=== PATIENT | female | born 1950 | race Caucasian/White ===

== ENCOUNTER 2023-11-20 09:28 | Observation (INO) | payer MEDICARE, OTHER, SELFPAY ==
[2023-11-20] VITALS (18 sets, daily range): BP systolic 109–158; BP diastolic 56–79; PULSE 64–90; RESP 12–18; TEMP 36.4–36.9; O2SAT 90–97; BMI 32.1
--- NOTE | 2023-11-20 09:46 | ED_ITS ---
HPI - General Adult General Date Seen: 11/20/23 Chief complaint: Nausea/Vomiting Stated complaint: flu symptoms Time Seen by Provider: 11/20/23 09:45 History of Present Illness HPI narrative: This 73-year-old female with a past medical history of hypertension, obesity, colon polyps, prediabetes and basal cell carcinoma of her nose (per records through [facility] she went through several rounds of radiation for her BC see on the left side of her nose over the winter (from July to September). This is left her with chronic watery, puffy eyes, and sinus congestion. She has been receiving ?infusions? at [facility] since then). Patient says has had chronic drainage from her left eye for the past few months since finishing radiation and also some chronic sinus congestion. she has been feeling sicker than normal for the past week, or maybe 2 weeks or 3 weeks. She is a bit vague about when symptoms started. She has had a cough. It is nonproductive. It started maybe a week or 2 ago. It is still there but not really worse than normal. No chest pain. No shortness of breath. She has also developed swelling of her left upper and lower eyelids, left cheek and left upper lip. This is been there for perhaps a week or so it has been getting a little bit worse. It is not painful. It does not hurt her eye. No pain in her eye socket. No headache. Vision is normal. She says she was told there was an 80% chance she would lose the vision in her left eye with radiation but she did not. Her vision is at baseline. No known eye trauma. She is having nasal drainage which is mostly clear. She is having some purulent drainage from her left eye. Right eye is normal. She was put on eyedrops by a doctor in [place] on Thursday. She does not recall what else was done in [place]. She recalls that she went to the ER at the [facility] a couple of days ago. She had to stay there for about 10 hours because they were busy. She says she received some IV fluids. She was put on antibiotics. She took 1 or 2 of them but they made her feel more sick (more nauseous) so she stopped taking them. She can not really remember when she stopped taking them. She for sure she has not had any today or yesterday. Along with these above symptoms she has also had nausea that has been getting steadily worse throughout the week. She says she is ?not been able to eat? for several days. Finally this morning she actually threw up when she drinks some water. She is having some upper abdominal pain. No fever. Bowel movements normal. Per records through [facility] she was seen in the [facility] on 11/15. Notes indicate that she had congestion, left eye discharge, malaise. Labs showed a sodium 132, glucose 106, platelet count 135,. Remainder of her labs are unknown because I am not able to see all of her lab tests through the record. Prescribed Augmentin for possible sinus infection, ofloxacin eyedrops. Notes indicate that she was going tof [facility] up with her doctor on (yesterday). She apparently talked to her family and they told her to come to the hospital in [place], because she was getting sicker. Related Data Home Medications Medication Instructions Recorded Confirmed albuterol sulfate 90 mcg/actuation 1 - 2 puff inhalation Q4H PRN 11/20/23 11/20/23 aerosol inhaler wheezing amlodipine 5 mg tablet 5 mg PO DAILY 11/20/23 11/20/23 amoxicillin 875 mg-potassium 1 tab PO BID 11/20/23 11/20/23 clavulanate 125 mg tablet cholecalciferol (vitamin D3) 50 50 mcg PO DAILY 11/20/23 11/20/23 mcg (2,000 unit) capsule doxazosin 4 mg tablet 4 mg PO HS 11/20/23 11/20/23 fluticasone propionate 110 2 inh inhalation BID 11/20/23 11/20/23 mcg/actuation HFA aerosol inhaler gabapentin 300 mg capsule 300 mg PO BID 11/20/23 11/20/23 lorazepam 0.5 mg tablet 0.5 mg PO DAILY PRN anxiety 11/20/23 11/20/23 losartan 100 mg tablet 100 mg PO DAILY 11/20/23 11/20/23 montelukast 10 mg tablet 10 mg PO DIRECTED PRN 11/20/23 11/20/23 ofloxacin 0.3 % eye drops (Ocuflox) 1 drp ophthalmic (eye) Q2H 11/20/23 11/20/23 Allergies Allergy/AdvReac Type Severity Reaction Status Date / Time No Known Drug Allergies Allergy Verified 11/20/23 12:54 PFSH PFS Medical History (Updated 11/20/23 @ 16:50 by Teja Bran MD) Hypertension ?I10 - Essential (primary) hypertension (ICD-10) Hyperlipidemia ?E78.5 - Hyperlipidemia, unspecified (ICD-10) Obesity (BMI 30.0-34.9) ?E66.9 - Obesity, unspecified (ICD-10) Basal cell carcinoma (BCC) of skin of face ?C44.310 - Basal cell carcinoma of skin of unspecified parts of face (ICD-10) Hyponatremia ?E87.1 - Hypo-osmolality and hyponatremia (ICD-10) Surgical History (Updated 11/20/23 @ 16:39 by Teja Bran MD) S/P Mohs surgery for basal cell carcinoma ?Z98.890 - Other specified postprocedural states (ICD-10) ?Z85.828 - Personal history of other malignant neoplasm of skin (ICD-10) H/O sinus surgery ?Z98.890 - Other specified postprocedural states (ICD-10) Family History (Updated 11/20/23 @ 16:35 by Teja Bran MD) Brother High blood pressure Mother Breast cancer Sister Breast cancer Melanoma Social History (Updated 11/20/23 @ 16:41 by Teja Bran MD) Narrative: She lives with her near [place]. , son, [id number] are healthcare power of senior attorney. She does not smoke. She does not drink alcohol. Code status is DNR. What is your current living situation?: I presently have a place to live Problems where you live: no known problems Problems where you live details: none known In the past 12 months, utilities in danger of being shut off: no In past 12 months, lack of transportation kept you from medical appts, meetings, work, or getting things needed for daily living: no In the past 12 mos, have been you worried that your food would run out before you had money to buy more?: never true In the past 12 mos, the food you bought just didn't last and you didn't have money to buy more?: never true Smoking Status: Never smoker How often do you have a drink containing alcohol: never AUDIT-C Alcohol total score: 0 Non-prescribed substance use: denies use Caffeine: No How often does anyone, including family, friends and others, physically hurt you : never How often does anyone, including family, friends and others, insult or talk down to you: never How often does anyone, including family, friends and others, threaten you with harm: never How often does anyone, including family, friends and others, scream or curse at you: never Exam Narrative: Exam Narrative: Constitutional: Appears well-developed and well-nourished. Alert. Conversant but tangential a story. Non toxic. HENT: Head: Atraumatic. No depressed skull fracture, Raccoon Eyes, Delacruz's sign, or hemotympanum. Face normal. TMs normal She does have subtle pink erythema affecting her left upper and lower eyelids, left cheek. She feels as though her left upper lip is swollen but I do not appreciate any swelling there. No palpable abscess in the cheek. Nose: Nonpurulent rhinorrhea mostly from the left naris. Mouth/Throat: Oral mucosa is clear and moist. no trismus. Pharynx normal. Tonsils symmetric. No tonsillar enlargement, erythema, or exudate. Eyes: Conjunctivae slightly injected in the left eye. There is some watery discharge from the left eye but no purulent drainage. No crusting at the eyelid margin. No exophthalmos or enophthalmos.. EOM normal and symmetric with the right eye. No nystagmus.. Pupils equal, round, and reactive to light. No scleral icterus. Neck: Normal range of motion. Neck supple. No tracheal deviation present. Fluorescein- no fluorescein uptake. No evidence for any corneal abrasion, herpetic dendrites. No sign of corneal ulcer. Cardiovascular: Normal rate, regular rhythm. No gallop. No friction rub. No murmur heard. Symmetric radial artery pulses Pulmonary/Chest: Effort normal. No stridor. No respiratory distress. No wheezes. No rales. No rhonchi . No tenderness. Abdominal: Soft. No distension. No mass. No tenderness. No rebound. No guarding. Musculoskeletal: RUE: Normal range of motion. No tenderness. No deformity LUE: Normal range of motion. No tenderness. No deformity RLE: Normal range of motion. No edema. No tenderness. No deformity LLE: Normal range of motion. No edema. No tenderness. No deformity Lymph: No cervical adenopathy. Neurological: Mental status normal. Attention normal. Alert and oriented x3. GCS 15. Memory normal. Speech fluent. Cognition normal. Cranial Nerves intact II-XII except I did not formally test gag or visual acuit y. EOMI. Palate elevates symmetrically and tongue protrudes in the midline. Strength: 5/5 trapezius on the right and left 5/5 deltoid on the right and left 5/5 biceps on the right and left 5/5 triceps on the right and left 5/5 assistant food service manager on the right and left 5/5 thumb opposition on the right and le ft 5/5 finger abduction on the right and le ft 5/5 hip flexors (L3) on the right and le ft 5/5 quadriceps (L4) on the right and lef t 5/5 tibialis anterior on the right and l eft 5/5 EHL (L5) on the right and left 5/5 gastrocnemius (S1) on the right and left 5/5 hamstring on the right and left Sensation intact to light touch in both upper extremities (C4-T1) Sensation intact to light touch in Both lower extremities (L4-S1). Finger to nose and coordination normal. Gait normal. Skin: Skin is warm and dry. No rash noted. No pallor. Normal capillary refill. Psychiatric: Normal mood. Normal affect. Const: Vital Signs, click to edit/add: Vital Signs - 24 hr 11/20/23 09:46 11/20/23 11:02 11/20/23 11:32 Temperature 98.4 F Pulse Rate 74 70 Pulse Rate [Pulse Oximeter] 73 Respiratory Rate 18 14 12 Blood Pressure 132/72 131/62 Blood Pressure [Ri t Upper Arm] 128/79 Pulse Oximetry 96 96 94 Oxygen Delivery Me thod Room Air 11/20/23 12:02 11/20/23 12:32 11/20/23 13:02 Temperature Pulse Rate 71 72 68 Pulse Rate [Pulse Oximeter] Respiratory Rate 14 16 12 Blood Pressure 132/64 132/64 120/66 Blood Pressure [Ri t Upper Arm] Pulse Oximetry 92 90 93 Oxygen Delivery Me thod 11/20/23 13:32 11/20/23 14:02 11/20/23 14:32 Temperature Pulse Rate 69 66 64 Pulse Rate [Pulse Oximeter] Respiratory Rate 14 16 14 Blood Pressure 129/68 134/63 131/59 L Blood Pressure [Ri ght Upper Arm] Pulse Oximetry 93 94 96 Oxygen Delivery Me thod 11/20/23 15:02 11/20/23 15:32 11/20/23 16:02 Temperature Pulse Rate 66 73 71 Pulse Rate [Pulse Oximeter] Respiratory Rate 14 16 Blood Pressure 140/75 H 158/66 H 142/61 H Blood Pressure [Ri ght Upper Arm] Pulse Oximetry 95 96 93 Oxygen Delivery Me thod 11/20/23 16:15 11/20/23 16:30 Temperature Pulse Rate 65 67 Pulse Rate [Pulse Oximeter] Respiratory Rate Blood Pressure Blood Pressure [Ri ght Upper Arm] Pulse Oximetry 92 94 Oxygen Delivery Me thod Course Course ED Course: Discussed with this patient's oncologist from [facility], Dr. Sanches He agrees that she should continue on antibiotics for possible preseptal/facial cellulitis. He also wonders if her symptoms could potentially be side effects of her immunomodulatory medication. He would recommend the, in addition to antibiotics, that we start the patient on low-dose prednisone-40 mg per day. Oncology agrees that the patient can be admitted here in [place]. She does not need transfer to [facility] for immediate oncology consultation. However if her condition worsens or fails to improve he would be available for consult over the phone and patient we will transfer later. Vital Signs Vital signs: Initial Vital Signs Temperature 98.4 F 11/20/23 09:46 Temperature Source Temporal Artery Scan 11/20/23 09:46 Pulse Rate 73 11/20/23 09:46 Respiratory Rate 18 11/20/23 09:46 Blood Pressure 128/79 11/20/23 09:46 Blood Pressure Mean 95 11/20/23 09:46 Pulse Oximetry 96 11/20/23 09:46 Oxygen Delivery Method Room Air 11/20/23 09:46 Vital Signs Temperature 98.4 F 11/20/23 09:46 Pulse Rate 73 11/20/23 09:46 Respiratory Rate 18 11/20/23 09:46 Blood Pressure 128/79 11/20/23 09:46 Pulse Oximetry 96 11/20/23 09:46 Oxygen Delivery Method Room Air 11/20/23 09:46 Temperature 97.6 F 11/20/23 20:27 Pulse Rate 81 11/20/23 20:27 Respiratory Rate 16 11/20/23 20:27 Blood Pressure 141/75 H 11/20/23 20:27 Pulse Oximetry 96 11/20/23 20:27 Oxygen Delivery Method Room Air 11/20/23 20:27 Medications Administered Medications: Generic Name Dose Route Start Last Admin Trade Name Vandaan PRN Reason Stop Dose Admin Ondansetron HCl 4 mg 11/20/23 15:53 11/20/23 17:52 Ondansetron 2 Mg/Ml Inj IVP 4 mg Q4H PRN Administration Nausea Sodium Chloride 1 gm 11/20/23 18:00 11/20/23 17:52 Sodium Chloride 1 Gm Tablet PO 1 gm TIDWM ASHLEIGH Administration Discontinued Medications Generic Name Dose Route Start Last Admin Trade Name Freleyla PRN Reason Stop Dose Admin Fluorescein Sodium 1 strip 11/20/23 10:21 11/20/23 14:48 Fluorescein Sodium Topical Strip EYE-LEFT 11/20/23 10:22 1 strip ONCE ONE Administration Sodium Chloride 1,000 mls @ 1,000 mls/hr 11/20/23 10:30 11/20/23 11:39 0.9 % Sodium Chloride 1000 Ml IV 11/20/23 11:29 Infused .Q1H ASHLEIGH Infusion Ceftriaxone Sodium 2 gm/ 100 mls @ 200 mls/hr 11/20/23 13:12 11/20/23 14:10 Sodium Chloride IVPB 11/20/23 13:13 Infused ONCE ONE Infusion Ibuprofen 600 mg 11/20/23 13:45 11/20/23 15:37 Ibuprofen 200 Mg Tablet PO 11/20/23 13:46 Not Given ONCE ONE Ondansetron HCl 4 mg 11/20/23 10:17 11/20/23 10:39 Ondansetron 2 Mg/Ml Inj IVP 11/20/23 10:18 4 mg ONCE ONE Administration Ondansetron HCl 4 mg 11/20/23 13:13 11/20/23 13:37 Ondansetron 2 Mg/Ml Inj IVP 11/20/23 13:14 4 mg ONCE ONE Administration Pantoprazole Sodium 80 mg 11/20/23 15:06 11/20/23 15:31 Pantoprazole Sodium 40 Mg Inj IVP 11/20/23 15:07 80 mg ONCE ONE Administration Potassium Bicarbonate 25 meq 11/20/23 16:20 11/20/23 18:22 Potassium Bicarb 25 Meq Effervescent Tab PO 11/20/23 16:21 Not Given ONCE ONE Potassium Chloride 20 meq 11/20/23 17:58 11/20/23 19:02 Potassium Chloride 10 Meq Capsule Er PO 11/20/23 17:59 20 meq ONCE ONE Administration Prednisone 40 mg 11/20/23 15:06 11/20/23 15:30 Prednisone 20 Mg Tablet PO 11/20/23 15:07 40 mg ONCE ONE Administration Prednisone 20 mg 11/20/23 16:03 11/20/23 17:52 Prednisone 10 Mg Tablet PO 11/20/23 16:04 20 mg ONCE ONE Administration Medical Decision Making MDM Narrative Medical decision making narrative: Very pleasant 73-year-old female with a history of complicated basal cell carcinoma affecting her left side of her bridge of her nose, requiring treatment with chemotherapy and local radiation. She gets her oncology care to the [facility] in finished a radiate in a couple of months ago. Radiation is been complicated by chronic watery over her eye and nasal congestion. She has now developed symptoms over the past couple weeks of swelling and redness of her left upper and lower eyelid, left cheek, as well as other symptoms as above. She has already been started on antibiotics for possible preseptal cellulitis but has worsening nausea and vomiting and cannot tolerate the antibiotics, prompting her presentation to the ER today. She does have subtle pink erythema of the left upper and lower eyelid, left cheek. This could represent a preseptal cellulitis but really is not quite as firm and indurated as you might expect to be ?typical? for infection. White co unt is normal. She is not febrile. We will start the patient on IV antibiotics since she is failing a course of outpatient antibiotics. No sepsis physiology. Vital signs stable. Broader differential is considered. Head CT is obtained and shows evidence for ethmoid sinusitis and some abnormalities in the right frontal sinus but not really on the left. No evidence for any bony erosion around the sinuses. CT orbits shows no evidence for any fluid collection in the orbit. No evidence for any cavernous sinus thrombosis. Eye exam does not show any evidence for corneal abrasion, corneal ulcer, foreign body under the lids. No mid dilated or fixed pupil or other visual symptoms or headache to suggest acute angle closure glaucoma. Patient does have nausea but no abdominal tenderness on my exam to suggest acute surgical GI pathology such as bowel obstruction, colitis, diverticulitis, cholecystitis. Nausea is improved here in the ER, but not completely resolved. Discussed with her oncologist. He wonders if she may have gastritis induced by her immune checkpoint inhibitor and recommends that we treat for gastritis with PPI as well as putting her on steroids. She will be admitted to the hospitalist service for ongoing IV antibiotic therapy, IV hydration, treatment of her nausea. Lab Data Labs: Lab Results 11/20/23 11/20/23 11/20/23 Range/Units 10:35 14:59 15:45 WBC 5.16 (4.50-11.00) K/uL RBC 4.45 (4.00-5.20) m/uL Hgb 12.4 (12.0-16.0) gm/dL Hct 35.7 (33.0-51.0) % MCV 80 (80-100) fL MCH 28 (26-34) pg MCHC 35 (32-36) gm/dL RDW Coeff of Christiano 13.2 (11.5-15.5) % Plt Count 130 L (140-440) K/uL Neut % (Auto) 62.0 (42.0-72.0) % Lymph % (Auto) 18.6 L (20-44) % Holmes % (Auto) 9.1 (0.0-11.0) % Eos % (Auto) 9.1 H (0.0-7.0) % Baso % (Auto) 1.0 (0.0-3.0) % Neut # (Auto) 3.20 (1.7-7.0) K/uL Lymph # (Auto) 1.00 (0.90-2.90) K/uL Holmes # (Auto) 0.50 (0.00-0.90) K/UL Eos # (Auto) 0.50 (0.00-0.50) K/uL Baso # (Auto) 0.05 (0.00-0.30) K/uL Abs Immat Gran (auto) 0.01 (0.00-0.30) K/uL Imm/Tot Granulo (auto) 0.2 % Sodium 125 L (135-149) mmol/L Potassium 3.4 L (3.6-5.1) mmol/L Chloride 99 (96-114) mmol/L Carbon Dioxide 22 (20-32) mmol/L Anion Gap 4 L (7-15) mEq/L BUN 7 (7-30) mg/dL Creatinine 0.5 (0.5-1.5) mg/dL Estimated Creat Clear 46.20 Estimated GFR 98 ml/min Glucose 82 (60-115) mg/dL Lactate 0.7 (0.5-1.9) mmol/L Calcium 8.6 (8.4-10.6) mg/dL Magnesium 1.5 (1.5-2.6) mg/dL Total Bilirubin 0.8 (0.1-1.5) mg/dL Direct Bilirubin 0.1 (0.0-0.5) mg/dL AST 34 (12-35) U/L ALT 20 (4-35) U/L Alkaline Phosphatase 66 (40-150) U/L C-Reactive Protein 1.1 H (0.5-1.0) mg/dL Total Protein 6.2 (6.0-8.3) g/dL Albumin 3.5 (3.3-5.0) g/dL Lipase 58 (23-300) U/L TSH 3.570 (0.270-4.20) uIU/mL Lab Acknowledgement Test Added Test Added Imaging Data CT scan - head: Attestation: I have reviewed the pertinent imaging results. My impression: IMPRESSION: 1. No CT evidence of acute intracranial abnormality. 2. Mild generalized cerebral volume loss. 3. Please see the separately dictated CT orbits for related findings.
--- NOTE | 2023-11-20 10:17 | CT_ITS ---
Patient: PRISCILLA THOMPSON Facility:?[facility] Patient ID:?[id number] Site Patient ID:?[id number]. Site :?[id number] Study:?CT-Orbits W/ and W/O Cont 98CC ISOVUE 370-11/20/2023 12:00:36 PM Ordering Physician:?DR. TRENT Final Report: Indication: Left eye swelling, nausea, history of left eye radiation for basal cell carcinoma of the left cheek under the eye. Technique: Pre and postcontrast CT of the orbits, with bone and soft tissue algorithm, coronal and sagittal reformats. A total of 98 mL Isovue 370 contrast was administered intravenously for this exam. Comparison: Same-day CT head. CT sinus report 11/20/2021. MRI neck report 12/13/2020. Findings: There is nonspecific smooth soft tissue fullness at the left infraorbital face extending to the nasolabial fold, which appears superficial to the superficial musculoaponeurotic system. No discrete, measurable enhancing soft tissue lesion or focal fluid collection identified. The left infraorbital canal and foramen appears symmetric to the right, without aggressive bony erosion or pathologic widening. The globes appear symmetric and normal in position. The intra-ocular lens is are present in the expected anterior location. No inflammatory stranding, focal mass or suspicious enhancement identified within the intraconal or extraconal space of either orbit. The optic nerve sheath complexes and extra- ocular muscles appear symmetric and normal in course and caliber. The facial bones appear grossly intact. There is mild right and moderate left circumferential mucosal thickening throughout the maxillary antrum, extending into the anterior ethmoid air cells bilaterally, with opacified left frontal recess and layering secretions in the left frontal sinus. 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 Stable lobulated dense debris within the inferior left maxillary antrum, potentially chronic inspissated secretions versus fungal elements. Minor mucosal thickening and bubbly secretions within the right sphenoid sinus. Narrowed bilateral sphenoethmoidal recesses. Nasal septum is relatively midline. Partially opacified bilateral middle eran lamella. Slightly paradoxical left middle turbinate. Intracranial structures are detailed in a separate report. Impression: 1. Nonspecific smooth superficial soft tissue fullness at the left infraorbital face and nasolabial fold, without a discrete enhancing lesion or focal fluid collection. This could represent nonspecific preseptal periorbital cellulitis and/or posttreatment change. However, given patient history, clinical correlation and attention on follow-up advised. 2. No evidence to suggest postseptal/intraorbital pathology. No suspicious findings along the left infraorbital foramen/canal. 3. Moderate paranasal sinus mucosal inflammatory changes as detailed. Please note that all CT scans at this facility use dose modulation, iterative reconstruction, and/or weight-based dosing when appropriate to reduce radiation dose to as low as reasonably achievable. Dictated by Vanesa Jones MD @ 11/20/2023 12:33:57 PM Signed by:?Vanesa Jones MD @11/20/2023 12:33:57 PM (Electronic Signature)
--- NOTE | 2023-11-20 10:17 | CT_ITS ---
Patient: PRISCILLA THOMPSON Facility:?[facility] Patient ID:?[id number] Site Patient ID:?[id number]. Site :?[id number] Study:?CT-Head WITHOUT-11/20/2023 11:59:51 AM Ordering Physician:?DR. TRENT Final Report: INDICATION: Left eye swelling, nausea. History of left eye radiation for basal cell carcinoma of the left cheek under the eye. TECHNIQUE: Noncontrast axial CT of the head. Coronal and sagittal reformats. Bone and soft tissue algorithms. COMPARISON: Same-day CT orbits. CT sinus report 11/20/2021 FINDINGS: Diffuse prominence of the ventricles and cortical sulci, compatible with generalized cerebral volume loss. No acute intracranial hemorrhage or abnormal extra-axial fluid collection. No midline shift or mass effect. Preserved early- white matter differentiation. Unremarkable white matter attenuation. Calcific intracranial atherosclerotic plaquing. Bony calvarium appears grossly intact. Facial structures are detailed on the separate CT orbits exam. Mastoid air cells are clear. IMPRESSION: 1. No CT evidence of acute intracranial abnormality. 2. Mild generalized cerebral volume loss. 3. Please see the separately dictated CT orbits for related findings. Please note that all CT scans at this facility use dose modulation, iterative reconstruction, and/or weight-based dosing when appropriate to reduce radiation dose to as low as reasonably achievable. Dictated by Vanesa Jones MD @ 11/20/2023 12:15:27 PM Signed by:?Vanesa Jones MD @11/20/2023 12:15:27 PM (Electronic Signature)
[2023-11-20] MEDS: ONDANSETRON 2 MG/ML inj 4 MG IVP ×3 (10:39→17:52)
[2023-11-20] MEDS: 0.9 % SODIUM CHLORIDE 1000 ml 1,000 ML IV (10:39)
[2023-11-20 10:45] LABS: Lactate* 0.7 mmol/L (0.5-1.9)
[2023-11-20 10:46] LABS: Basophils Absolute Auto 0.05 K/uL (0.00-0.30); Eosinophils Percent Auto 9.1 % (0.0-7.0); Hematocrit 35.7 % (33.0-51.0); Hemoglobin* 12.4 gm/dL (12.0-16.0); Immature Granulocytes Abs Auto 0.01 K/uL (0.00-0.30); Immature Granulocytes Pct Auto 0.2 %; Lymphocytes Percent Auto 18.6 % (20-44); Mean Corpuscular HGB Conc 35 gm/dL (32-36); Mean Corpuscular Hemoglobin 28 pg (26-34); Mean Corpuscular Volume 80 fL (80-100); Monocytes Percent Auto 9.1 % (0.0-11.0); Platelet Count* 130 K/uL (140-440); RDW Coefficient of Variation % 13.2 % (11.5-15.5); Red Blood Count 4.45 m/uL (4.00-5.20); White Blood Count* 5.16 K/uL (4.50-11.00)
[2023-11-20 10:48] LABS: Slide Review Reflex No
[2023-11-20 11:01] LABS: Chloride* 99 mmol/L (96-114); Potassium* 3.4 mmol/L (3.6-5.1); Sodium* 125 mmol/L (135-149)
[2023-11-20 11:04] LABS: Creatinine* 0.5 mg/dL (0.5-1.5); Estimated Glomerular Filt Rate 98 ml/min
[2023-11-20 11:05] LABS: Anion Gap 4 mEq/L (7-15); Blood Urea Nitrogen* 7 mg/dL (7-30); Calcium* 8.6 mg/dL (8.4-10.6); Carbon Dioxide* 22 mmol/L (20-32); Glucose* 82 mg/dL (60-115)
[2023-11-20 11:08] LABS: C Reactive Protein* 1.1 mg/dL (0.5-1.0)
[2023-11-20] MEDS: cefTRIAXone 2 GM in 0.9 % SODIUM CHLORIDE Mini-bag 100 ML IVPB (13:37)
[2023-11-20] MEDS: FLUORESCEIN SODIUM TOPICAL STRIP 1 STRIP EYE-LEFT (14:48)
[2023-11-20] MEDS: predniSONE 20 MG TABLET 40 MG PO (15:30)
[2023-11-20] MEDS: PANTOPRAZOLE SODIUM 40 MG INJ 80 MG IVP (15:31)
[2023-11-20 15:58] LABS: Albumin* 3.5 g/dL (3.3-5.0)
[2023-11-20 16:01] LABS: Aspartate Amino Transferase* 34 U/L (12-35); Bilirubin Direct* 0.1 mg/dL (0.0-0.5); Bilirubin Total* 0.8 mg/dL (0.1-1.5); Total Protein* 6.2 g/dL (6.0-8.3)
[2023-11-20 16:02] LABS: Alanine Aminotransferase* 20 U/L (4-35); Alkaline Phosphatase* 66 U/L (40-150); Lipase* 58 U/L (23-300); Magnesium* 1.5 mg/dL (1.5-2.6)
--- NOTE | 2023-11-20 16:23 | P.IMHP_ITS ---
Hospitalist- H&P: HPI History of Present Illness Date Seen: 11/20/23 Chief complaint: flu symptoms Narrative: Priscilla Thompson is a 73 year old female with immune therapy and radiation treatment for basal cell carcinoma the face presents with recent onset of fatigue malaise poor appetite nausea vomiting facial swelling, purulent nasal and conjunctival drainage. Patient has a longstanding history of basal carcinoma on the left side of the bridge of her nose. This was surgically excised to decades ago. She had recurrence of the cancer in the same area and through [facility] has been getting radiation treatment this winter. Radiation treatment finished a couple months ago. She has also been on immune therapy with Libtayo, IV infusion every 3 weeks. Most recent dose was due today. The radiation therapy did cause some swelling in her face but she reports that has been getting worse in the last few days. She has also had chronic nasal congestion with postnasal drainage and now also some purulent drainage from the left conjunctiva. Chronic nasal congestion is been present since radiation therapy. The purulent drainage from her eye is more recent in the last few days. She was seen in the emergency department in [place] 4 days ago where she was diagnosed with a conjunctivitis and sinusitis and started on Augmentin and ofloxacin eyedrops. She was seen in the emergency department in [place] 2 days ago. Evaluation there did not lead to any further treatment. Details of that evaluation are not currently available. She comes to our emergency department today reporting that if anything she is feeling worse. She feels like the swelling in her face is worse but more importantly she has profound fatigue, malaise, nausea, anorexia. She has had very little to eat this week. She took about 3 Augmentin tablets over the last 4 days and stop taking them because she would vomit after she took them. She has had no antibiotics in the last 2 days. She has had the same problem with eating and drinking causing nausea and vomiting as well. She reports no appeti te for last few days. She has had longstanding loss of taste and smell associated with her radiation. She has not had any diarrhea. She has not had any abdominal pain she has not had any fever. She has been on immune therapy with Libtayo for a few months. She does get pre treated with IV diphenhydramine, IV famotidine, and oral montelukast with IV infusions to minimize allergic reactions. She is not otherwise aware of any side effects or toxicity from her immune therapy. She reports prior to the last several days she has not had any significant gastrointestinal problems. No previous gastrointestinal surgeries. No other problems with abdominal pain, nausea, vomiting, diarrhea, blood in her stool. She has not had any hematemesis. Review of Systems Narrative: Patient reports she has done exceptionally well with radiation therapy and immune therapy for her basal cell carcinoma. Other than affects on her chronic nasal congestion with loss of smell and swelling of the left cheek she has not had any other significant side effects, until possibly the past several days. [facility] Medical History (Updated 11/20/23 @ 16:50 by Teja Bran MD) Hypertension ?I10 - Essential (primary) hypertension (ICD-10) Hyperlipidemia ?E78.5 - Hyperlipidemia, unspecified (ICD-10) Obesity (BMI 30.0-34.9) ?E66.9 - Obesity, unspecified (ICD-10) Basal cell carcinoma (BCC) of skin of face ?C44.310 - Basal cell carcinoma of skin of unspecified parts of face (ICD-10) Hyponatremia ?E87.1 - Hypo-osmolality and hyponatremia (ICD-10) Surgical History (Updated 11/20/23 @ 16:39 by Teja Bran MD) S/P Mohs surgery for basal cell carcinoma ?Z98.890 - Other specified postprocedural states (ICD-10) ?Z85.828 - Personal history of other malignant neoplasm of skin (ICD-10) H/O sinus surgery ?Z98.890 - Other specified postprocedural states (ICD-10) Family History (Updated 11/20/23 @ 16:35 by Teja Bran MD) Brother High blood pressure Mother Breast cancer Sister Breast cancer Melanoma Social History (Updated 11/20/23 @ 16:41 by Teja Bran MD) Narrative: She lives with her near [place]. , son, [id number] are healthcare power of estate attorney. She does not smoke. She does not drink alcohol. Code status is DNR. Smoking Status: Never smoker How often do you have a drink containing alcohol: never AUDIT-C Alcohol total score: 0 Non-prescribed substance use: denies use Meds Home Medications and Allergies Home Medications Medication Instructions Recorded Confirmed Type albuterol sulfate 90 mcg/actuation 1 - 2 puff inhalation Q4H PRN 11/20/23 11/20/23 History aerosol inhaler wheezing amlodipine 5 mg tablet 5 mg PO DAILY 11/20/23 11/20/23 History doxazosin 4 mg tablet 4 mg PO QPM 11/20/23 11/20/23 History fluticasone propionate 110 2 inh inhalation BID 11/20/23 11/20/23 History mcg/actuation HFA aerosol inhaler gabapentin 300 mg capsule 300 mg PO BID 11/20/23 11/20/23 History lorazepam 0.5 mg tablet 0.5 mg PO DAILY PRN anxiety 11/20/23 11/20/23 History losartan 100 mg tablet 100 mg PO DAILY 11/20/23 11/20/23 History montelukast 10 mg tablet 10 mg PO DAILY 11/20/23 11/20/23 History Allergies Allergy/AdvReac Type Severity Reaction Status Date / Time No Known Drug Allergies Allergy Verified 11/20/23 12:54 Exam Narrative: Exam Narrative: She is alert and appears in no distress. Inspection of the face shows that she has moderate swelling and mild erythema mostly around the left cheek and eyelids. Mild swelling without erythema on the right side. She has healed scar on the left bridge of her nose consistent with previous Mohs surgery for basal cell carcinoma. No ulceration in her skin. No open wound skin wounds. Left eyelids are quite edematous. Left eye is without obvious chondral tablet injection and there is no current purulent drainage. Right eye appears normal. Palpation over her face with minimal tenderness over that area of erythema and edema over her zygomatic arch and infraorbital rim. Oropharynx is normal. Neck is supple without mass or adenopathy. Respirations are clear to auscultation. Cardiovascular: S1, S2, regular rate and rhythm. No murmur gallop or rub. Abdomen: Bowel sounds active. Abdomen is soft without tenderness or mass. Extremities without edema. Good peripheral pulses. No rash. She moves all 4 extremities well. Const: Vital Signs, click to edit/add: Vital Signs - 24 hr 11/20/23 09:46 11/20/23 11:02 11/20/23 11:32 Temperature 98.4 F Pulse Rate 74 70 Pulse Rate [Pulse Oximeter] 73 Respiratory Rate 18 14 12 Blood Pressure 132/72 131/62 Blood Pressure [Ri ght Upper Arm] 128/79 Pulse Oximetry 96 96 94 Oxygen Delivery Me thod Room Air 11/20/23 12:02 11/20/23 12:32 11/20/23 13:02 Temperature Pulse Rate 71 72 68 Pulse Rate [Pulse Oximeter] Respiratory Rate 14 16 12 Blood Pressure 132/64 132/64 120/66 Blood Pressure [Ri ght Upper Arm] Pulse Oximetry 92 90 93 Oxygen Delivery Me thod 11/20/23 13:32 11/20/23 14:02 11/20/23 14:32 Temperature Pulse Rate 69 66 64 Pulse Rate [Pulse Oximeter] Respiratory Rate 14 16 14 Blood Pressure 129/68 134/63 131/59 L Blood Pressure [Ri ght Upper Arm] Pulse Oximetry 93 94 96 Oxygen Delivery Me thod 11/20/23 15:02 11/20/23 15:32 Temperature Pulse Rate 66 73 Pulse Rate [Pulse Oximeter] Respiratory Rate 14 16 Blood Pressure 140/75 H 158/66 H Blood Pressure [Ri ght Upper Arm] Pulse Oximetry 95 96 Oxygen Delivery Me thod Documenting provider has reviewed patient's vital signs: yes Hospitalist - H&P: Result Labs Labs: Short CBC 11/20/23 Range/Units 10:35 WBC 5.16 (4.50-11.00) K/uL Hgb 12.4 (12.0-16.0) gm/dL Hct 35.7 (33.0-51.0) % Plt Count 130 L (140-440) K/uL BMP 11/20/23 10:35 Sodium 125 L Potassium 3.4 L Chloride 99 Carbon Dioxide 22 BUN 7 Creatinine 0.5 Glucose 82 Calcium 8.6 Liver Function 11/20/23 Range/Units 10:35 Total Bilirubin 0.8 (0.1-1.5) mg/dL Direct Bilirubin 0.1 (0.0-0.5) mg/dL AST 34 (12-35) U/L ALT 20 (4-35) U/L Alkaline Phosphatase 66 (40-150) U/L Albumin 3.5 (3.3-5.0) g/dL Imaging CT scan - head: Radiologist's impression: Patient: PRISCILLA THOMPSON Facility:[facility] R[facility] Patient ID:?[id number] Site Patient ID:?[id number]. Site :?[id number] Study:?CT-Orbits W/ and W/O Cont 98CC ISOVUE 370-11/20/2023 12:00:36 PM Ordering Physician:JUAN A TRENT Final Report: Indication: Left eye swelling, nausea, history of left eye radiation for basal cell carcinoma of the left cheek under the eye. Technique: Pre and postcontrast CT of the orbits, with bone and soft tissue algorithm, coronal and sagittal reformats. A total of 98 mL Isovue 370 contrast was administered intravenously for this exam. Comparison: Same-day CT head. CT sinus report 11/20/2021. MRI neck report 12/13/2020. Findings: There is nonspecific smooth soft tissue fullness at the left infraorbital face extending to the nasolabial fold, which appears superficial to the superficial musculoaponeurotic system. No discrete, measurable enhancing soft tissue lesion or focal fluid collection identified. The left infraorbital canal and foramen appears symmetric to the right, without aggressive bony erosion or pathologic widening. The globes appear symmetric and normal in position. The intra-ocular lens is are present in the expected anterior location. No inflammatory stranding, focal mass or suspicious enhancement identified within the intraconal or extraconal space of either orbit. The optic nerve sheath complexes and extra- ocular muscles appear symmetric and normal in course and caliber. The facial bones appear grossly intact. There is mild right and moderate left circumferential mucosal thickening throughout the maxillary antrum, extending into the anterior ethmoid air cells bilaterally, with opacified left frontal recess and layering secretions in the left frontal sinus. 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 Stable lobulated dense debris within the inferior left maxillary antrum, potentially chronic inspissated secretions versus fungal elements. Minor mucosal thickening and bubbly secretions within the right sphenoid sinus. Narrowed bilateral sphenoethmoidal recesses. Nasal septum is relatively midline. Partially opacified bilateral middle eran lamella. Slightly paradoxical left middle turbinate. Intracranial structures are detailed in a separate report. Impression: 1. Nonspecific smooth superficial soft tissue fullness at the left infraorbital face and nasolabial fold, without a discrete enhancing lesion or focal fluid collection. This could represent nonspecific preseptal periorbital cellulitis and/or posttreatment change. However, given patient history, clinical correlation and attention on follow-up advised. 2. No evidence to suggest postseptal/intraorbital pathology. No suspicious findings along the left infraorbital foramen/canal. 3. Moderate paranasal sinus mucosal inflammatory changes as detailed. Patient: PRISCILLA THOMPSON Facility:?[facility] Patient ID:?[id number] Site Patient ID:?[id number]. Site :?[id number] Study:?CT-Head WITHOUT-11/20/2023 11:59:51 AM Ordering Physician:?DR. TRENT Final Report: INDICATION: Left eye swelling, nausea. History of left eye radiation for basal cell carcinoma of the left cheek under the eye. TECHNIQUE: Noncontrast axial CT of the head. Coronal and sagittal reformats. Bone and soft tissue algorithms. COMPARISON: Same-day CT orbits. CT sinus report 11/20/2021 FINDINGS: Diffuse prominence of the ventricles and cortical sulci, compatible with general ized cerebral volume loss. No acute intracranial hemorrhage or abnormal extra- axial fluid collection. No midline shift or mass effect. Preserved early-white matter differentiation. Unremarkable white matter attenuation. Calcific intracranial atherosclerotic plaquing. Bony calvarium appears grossly intact. Facial structures are detailed on the separate CT orbits exam. Mastoid air cells are clear. IMPRESSION: 1. No CT evidence of acute intracranial abnormality. 2. Mild generalized cerebral volume loss. 3. Please see the separately dictated CT orbits for related findings. Assessment and Plan Assessment and plan (1) Facial cellulitis: Problem comment: Swelling and erythema of the face. Per family that this is worse than it was after her radiation treatment suggesting this is an acute cellulitis on top of a chronic inflammation post radiation. Treat with ceftriaxone. Culture for MRSA and treat accordingly Status: Acute (2) Sinusitis: Problem comment: Clinically and radiographically has some evidence for sinusitis. Will treat with ceftriaxone. Status: Acute (3) Fatigue: Problem comment: Patient reports fairly severe fatigue and malaise. I am concerned this may be due to a different causes than her facial cellulitis. Specifically I am concerned that it may be a side effect of her Libtayo immune therapy. Will initiate treatment with prednisone 60 mg daily and continue to monitor symptoms Status: Acute (4) Nausea and vomiting: Problem comment: Nausea vomiting and anorexia are fairly severe. Initial clinical evaluation of the abdomen is otherwise unremarkable. May be toxicity from Libtayo. Treat with prednisone and monitor. May require CT imaging of the abdomen if not getting better. Status: Acute (5) Basal cell carcinoma (BCC) of skin of face: Problem comment: Left side of the bridge of the nose. Remote surgery with Mohs. 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 Discontinued chlorthalidone in April 2023 but did not improve chronic hyponatremia. For now will put her on sodium chloride tablets rather than fluid restrict since I am encouraging her to take in oral food and fluid. Status: Acute (7) Hypokalemia: Problem comment: Likely due to poor oral intake. Replace and follow. Status: Acute Plan 73-year-old female admitted to the hospital with evidence of sinusitis, left facial cellulitis and fairly prominent fatigue, malaise, nausea, vomiting, anorexia. Will initiate treatment with IV antibiotics for her cellulitis and sinusitis. I am concerned that her other constitutional symptoms may be related to immune therapy with Libtayo. Initiate prednisone 60 mg daily for that. Further evaluation and treatment based on her clinical course. Consult [facility] if not getting better. Total Time Spent Total Time Spent: Total time spent today is 80 minutes, 50 minutes in coordination of care discussing with patient family and other providers ongoing evaluation management of sinusitis, cellulitis, fatigue, malaise, nausea, vomiting, anorexia
--- NOTE | 2023-11-20 16:37 | ED.NURSE ---
Pt report given to tiny RN, pt to room 260.
[2023-11-20] MEDS: SODIUM CHLORIDE 1 GM TABLET PO (17:52)
[2023-11-20] MEDS: predniSONE 10 MG TABLET 20 MG PO (17:52)
[2023-11-20] MEDS: POTASSIUM CHLORIDE 10 MEQ CAPSULE ER 20 MEQ PO (19:02)
--- NOTE | 2023-11-20 19:22 | PC.NURSE ---
End of Shift: Admitted to the floor @ 1630 THIS AFTERNOON. The patient reports mild nausea PRN Zofran given this shift. No reports of pain this shift. Call light within reach. VSS on RA. Ate about 50% of dinner. Family is visiting in the room. Mary OROSCO BSN
[2023-11-20] MEDS: DOXAZOSIN 4 MG TABLET PO (20:29)
[2023-11-20] MEDS: SODIUM CHLORIDE 0.9 % (FLUSH) 10 ML SYRINGE 5 ML IVF (20:30)
[2023-11-20] MEDS: ENOXAPARIN 40 MG/0.4 ML INJ SUBCUT (20:30)
[2023-11-20] MEDS: GABAPENTIN 300 MG CAPSULE PO (20:30)
[2023-11-21 03:00] VITALS: BP 126/61; RESP 16; TEMP 36.8; O2SAT 93
[2023-11-21 06:21] LABS: Basophils Absolute Auto 0.04 K/uL (0.00-0.30); Basophils Percent Auto 0.7 % (0.0-3.0); Eosinophils Absolute Auto 0.03 K/uL (0.00-0.50); Eosinophils Percent Auto 0.5 % (0.0-7.0); Hematocrit 34.4 % (33.0-51.0); Hemoglobin* 11.8 gm/dL (12.0-16.0); Immature Granulocytes Abs Auto 0.02 K/uL (0.00-0.30); Immature Granulocytes Pct Auto 0.4 %; Lymphocytes Percent Auto 11.4 % (20-44); Mean Corpuscular HGB Conc 34 gm/dL (32-36); Mean Corpuscular Hemoglobin 28 pg (26-34); Mean Corpuscular Volume 80 fL (80-100); Monocytes Percent Auto 4.4 % (0.0-11.0); Neutrophils Percent Auto 82.6 % (42.0-72.0); Platelet Count* 158 K/uL (140-440); RDW Coefficient of Variation % 13.1 % (11.5-15.5); Red Blood Count 4.29 m/uL (4.00-5.20); White Blood Count* 5.63 K/uL (4.50-11.00)
[2023-11-21 06:28] LABS: Slide Review Reflex No
--- NOTE | 2023-11-21 06:42 | PC.NURSE ---
Pt alert and oriented x3. Afebrile. Pt denies pain, chest pain, SOB, chest pain, and vomiting. Pt reports nausea but states ?its feeling better?. Pt is up ad dalila, voiding, and tolerating a regular diet but reports appetite is still decreased. Pt slept throughout most of night. ?
[2023-11-21 06:43] LABS: Chloride* 106 mmol/L (96-114); Potassium* 4.2 mmol/L (3.6-5.1); Sodium* 128 mmol/L (135-149)
[2023-11-21 06:46] LABS: Anion Gap 3 mEq/L (7-15); Carbon Dioxide* 19 mmol/L (20-32); Creatinine* 0.5 mg/dL (0.5-1.5); Estimated Glomerular Filt Rate 98 ml/min
[2023-11-21 06:47] LABS: Blood Urea Nitrogen* 8 mg/dL (7-30); Calcium* 8.7 mg/dL (8.4-10.6); Glucose* 109 mg/dL (60-115)
[2023-11-21] MEDS: OMEPRAZOLE 20 MG CAPSULE DR PO (07:18)
[2023-11-21 08:46] VITALS: BP 105/55; PULSE 90; PULSE 92; RESP 16; RESP 18; TEMP 37.2; O2SAT 96
[2023-11-21] MEDS: predniSONE 20 MG TABLET 60 MG PO (08:55)
[2023-11-21] MEDS: GABAPENTIN 300 MG CAPSULE PO ×2 (08:56→21:01)
[2023-11-21] MEDS: AMLODIPINE 5 MG TABLET PO (08:56)
[2023-11-21] MEDS: cefTRIAXone 1 GM in 0.9 % SODIUM CHLORIDE Mini-bag 100 ML IVPB (08:56)
[2023-11-21] MEDS: LOSARTAN POTASSIUM 50 MG TABLET 100 MG PO (08:56)
[2023-11-21] MEDS: SODIUM CHLORIDE 0.9 % (FLUSH) 10 ML SYRINGE 5 ML IVF ×2 (08:57→21:02)
[2023-11-21] MEDS: SODIUM CHLORIDE 1 GM TABLET PO ×3 (08:57→17:01)
[2023-11-21] MEDS: MAGNESIUM OXIDE 400 MG TABLET PO (08:57)
[2023-11-21 11:00] VITALS: BP 124/65; PULSE 93; RESP 21; TEMP 37.4; O2SAT 94
--- NOTE | 2023-11-21 11:38 | P.IMPN_ITS ---
Progress Note: A&P Assessment and plan (1) Facial cellulitis: Problem details: Swelling and erythema of the face. Per family that this is worse than it was after her radiation treatment suggesting this is an acute cellulitis on top of a chronic inflammation post radiation. Continue ceftriaxone with plan to transition to oral antibiotic prior to discharge MRSA pending 11/20 on my exam this morning, no significant swelling or erythema of the face Status: Acute (2) Sinusitis: Problem details: Clinically and radiographically has some evidence for sinusitis Continue ceftriaxone, as above transitioning to oral at discharge Status: Acute (3) Fatigue: Problem details: Patient reports fairly severe fatigue and malaise. I am concerned this may be due to a different causes than her facial cellulitis. Specifically I am concerned that it may be a side effect of her Libtayo immune therapy. Continue prednisone 60 mg daily as recommended by [facility], Dr. Sanches Outpatient follow-up with Oncology to re-evaluate immune therapy/side effects/fatigue and malaise Status: Acute (4) Nausea and vomiting: Problem details: Nausea vomiting and anorexia are fairly severe. Initial clinical evaluation of the abdomen is otherwise unremarkable. May be toxicity from Libtayo. Continue prednisone and monitor - improved this morning May require CT imaging of the abdomen if not getting better Outpatient follow-up with Oncology to re-evaluate immune therapy Status: Acute (5) Basal cell carcinoma (BCC) of skin of face: Problem details: Left side of the bridge of the nose. Remote surgery with Mohs. Recent radiation (completed September 2023) and ongoing immune therapy. 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 Reports her twin brother and her daughter have the same issue. Discontinued chlorthalidone in April 2023 but did not improve chronic hyponatremia. Continue sodium chloride tablets rather than fluid restrict since I am encouraging her to take in oral food and fluid. Status: Acute (7) Hypokalemia: Problem details: Likely due to poor oral intake. Improved 4.2 following replacement, monitor Status: Acute Plan Possible discharge Thursday pending ongoing clinical improvement. Will need close outpatient follow-up with Oncology to reassess current therapies and potential side effects. Time Spent With Patient Total time spent: Total time spent caring for the patient today was 45 minutes. This includes time spent for the visit reviewing the chart, time spent during the visit, time spent after the visit and documentation and planning in coordination of care. Subjective Date Seen: 11/21/23 Interval history: Patient is seen sitting up in a chair this morning. Reports feeling better. Did not sleep well but otherwise feels like she is improving. Has remained afebrile. Tolerating orals without nausea vomiting. Has had chronic nasal congestion since radiation therapy which ended just about 2 months ago. Was told this could take some time to clear if it does at all. Exam Narrative: Exam Narrative: PHYSICAL EXAM General: Pleasant, conversant, NAD HEENT: Normocephalic, atraumatic, sclera white, EOMI, oral mucosa moist. No obvious facial swelling or erythema this morning. Cardiovascular: RRR, S1S2 Pulmonary: CTA bilaterally without rhonchi, rales, expiratory wheezes. No dyspnea on room air Neurological: Alert, answering questions appropriately, cranial nerves intact, no focal findings Extremities: No gross joint deformity or swelling. AROMI. Neurovascularly intact Skin: Warm, dry. Const: Vital Signs, click to edit/add: Vital Signs - 24 hr 11/20/23 12:02 11/20/23 12:32 11/20/23 13:02 Temperature Pulse Rate 71 72 68 Pulse Rate [Right Pulse Oximeter] Respiratory Rate 14 16 12 Blood Pressure 132/64 132/64 120/66 Blood Pressure [Le ft Arm] Pulse Oximetry 92 90 93 Oxygen Delivery Me od 11/20/23 13:32 11/20/23 14:02 11/20/23 14:32 Temperature Pulse Rate 69 66 64 Pulse Rate [Right Pulse Oximeter] Respiratory Rate 14 16 14 Blood Pressure 129/68 134/63 131/59 L Blood Pressure [Le ft Arm] Pulse Oximetry 93 94 96 Oxygen Delivery Ne thod 11/20/23 15:02 11/20/23 15:32 11/20/23 16:02 Temperature Pulse Rate 66 73 71 Pulse Rate [Right Pulse Oximeter] Respiratory Rate 14 16 Blood Pressure 140/75 H 158/66 H 142/61 H Blood Pressure [Le ft Arm] Pulse Oximetry 95 96 93 Oxygen Delivery Ne thod 11/20/23 16:15 11/20/23 16:30 11/20/23 16:43 Temperature 98.1 F Pulse Rate 65 67 Pulse Rate [Right Pulse Oximeter] 75 Respiratory Rate 16 Blood Pressure Blood Pressure [Le ft Arm] 122/56 L Pulse Oximetry 92 94 97 Oxygen Delivery Me thod Room Air 11/20/23 16:43 11/20/23 20:27 11/20/23 23:00 Temperature 97.6 F Pulse Rate Pulse Rate [Right Pulse Oximeter] 81 Respiratory Rate 16 16 16 Blood Pressure Blood Pressure [Le ft Arm] 141/75 H Pulse Oximetry 97 96 Oxygen Delivery Me thod Room Air Room Air 11/20/23 23:30 11/21/23 03:00 11/21/23 08:46 Temperature 97.7 F 98.3 F Pulse Rate Pulse Rate [Right Pulse Oximeter] 90 90 Respiratory Rate 16 16 16 Blood Pressure Blood Pressure [Le ft Arm] 109/59 L 126/61 Pulse Oximetry 96 93 Oxygen Delivery Me thod Room Air Room Air 11/21/23 08:46 Temperature 99 F Pulse Rate Pulse Rate [Right Pulse Oximeter] 92 Respiratory Rate 18 Blood Pressure Blood Pressure [Le ft Arm] 105/55 L Pulse Oximetry 96 Oxygen Delivery Me thod Room Air Labs Labs: Laboratory Results - last 24 hr 11/20/23 11/20/23 11/20/23 10:35 14:59 15:45 WBC RBC Hgb Hct MCV MCH MCHC RDW Coeff of Christiano Plt Count Neut % (Auto) Lymph % (Auto) [place] % (Auto) Eos % (Auto) Baso % (Auto) Neut # (Auto) Lymph # (Auto) [place] # (Auto) Eos # (Auto) Baso # (Auto) Abs Immat Gran (auto) Imm/Tot Granulo (auto) Sodium Potassium Chloride Carbon Dioxide Anion Gap BUN Creatinine Estimated Creat Clear Estimated GFR Glucose Calcium Magnesium 1.5 Total Bilirubin 0.8 Direct Bilirubin 0.1 AST 34 ALT 20 Alkaline Phosphatase 66 Total Protein 6.2 Albumin 3.5 Lipase 58 TSH 3.570 Lab Acknowledgement Test Added Test Added 11/21/23 06:05 WBC 5.63 RBC 4.29 Hgb 11.8 L Hct 34.4 MCV 80 MCH 28 MCHC 34 RDW Coeff of Christiano 13.1 Plt Count 158 Neut % (Auto) 82.6 H Lymph % (Auto) 11.4 L Barnwell % (Auto) 4.4 Eos % (Auto) 0.5 Baso % (Auto) 0.7 Neut # (Auto) 4.70 Lymph # (Auto) 0.60 L Barnwell # (Auto) 0.20 Eos # (Auto) 0.03 Baso # (Auto) 0.04 Abs Immat Gran (auto) 0.02 Imm/Tot Granulo (auto) 0.4 Sodium 128 L Potassium 4.2 Chloride 106 Carbon Dioxide 19 L Anion Gap 3 L BUN 8 Creatinine 0.5 Estimated Creat Clear 46.20 Estimated GFR 98 Glucose 109 Calcium 8.7 Magnesium Total Bilirubin Direct Bilirubin AST ALT Alkaline Phosphatase Total Protein Albumin Lipase TSH Lab Acknowledgement
--- NOTE | 2023-11-21 14:59 | PC.NURSE ---
Nursing Care Hours: [id number] Pt this shift calm and cooperative, alert and oriented. No c/o pain. VSS. Appetite increased and tolerated breakfast. Nasal congestion still noted, no cough observed but pt states intermittent dry cough still. Voiding sufficiently. Pt independent in room.
[2023-11-21 15:00] VITALS: BP 119/64; PULSE 89; RESP 16; TEMP 37.1; O2SAT 97
--- NOTE | 2023-11-21 18:19 | PC.NURSE ---
[id number]: Patient is talkative and pleasant. No reports of abdominal discomfort or nausea this shift. Continues to tolerate a normal diet with no issues. Up ad dalila. Moderate L eye edema is noted and not new for the patient. Na tab was given. Call light within reach. Finished dinner in the chair and her family returned to visit. Mary OROSCO BSN
[2023-11-21 19:00] VITALS: BP 128/90; PULSE 90; RESP 16; TEMP 37.1; O2SAT 97
[2023-11-21] MEDS: DOXAZOSIN 4 MG TABLET PO (21:01)
[2023-11-21] MEDS: ENOXAPARIN 40 MG/0.4 ML INJ SUBCUT (21:02)
--- NOTE | 2023-11-21 22:32 | PC.NURSE ---
Shift note: Pt is alert and oriented, ambulated independently in room. NO pain and change in vision, especially to the left eye.
[2023-11-21 23:28] VITALS: BP 131/69; PULSE 87; RESP 16; TEMP 36.7; O2SAT 98
[2023-11-22 04:32] VITALS: BP 124/63; PULSE 72; RESP 16; TEMP 36.4; O2SAT 96
[2023-11-22] MEDS: OMEPRAZOLE 20 MG CAPSULE DR PO (05:54)
[2023-11-22 06:25] LABS: Basophils Absolute Auto 0.05 K/uL (0.00-0.30); Basophils Percent Auto 0.7 % (0.0-3.0); Eosinophils Percent Auto 1.3 % (0.0-7.0); Hematocrit 33.1 % (33.0-51.0); Hemoglobin* 11.3 gm/dL (12.0-16.0); Immature Granulocytes Abs Auto 0.03 K/uL (0.00-0.30); Immature Granulocytes Pct Auto 0.4 %; Lymphocytes Percent Auto 14.7 % (20-44); Mean Corpuscular HGB Conc 34 gm/dL (32-36); Mean Corpuscular Hemoglobin 28 pg (26-34); Mean Corpuscular Volume 81 fL (80-100); Monocytes Percent Auto 8.1 % (0.0-11.0); Neutrophils Percent Auto 74.8 % (42.0-72.0); Platelet Count* 174 K/uL (140-440); RDW Coefficient of Variation % 13.8 % (11.5-15.5); Red Blood Count 4.09 m/uL (4.00-5.20); White Blood Count* 7.49 K/uL (4.50-11.00)
[2023-11-22 06:35] LABS: Slide Review Reflex No
--- NOTE | 2023-11-22 06:35 | PC.NURSE ---
Pt alert and oriented x3. Afebrile. Pt denies N/V, pain, chest pain, SOB, and chest pain. Pt is up ad dalila, voiding, and tolerating a regular diet. VSS. Pt slept throughout most of night. Night uneventful.
[2023-11-22 06:49] LABS: Chloride* 107 mmol/L (96-114)
[2023-11-22 06:50] LABS: Potassium* 3.7 mmol/L (3.6-5.1); Sodium* 133 mmol/L (135-149)
[2023-11-22 06:52] LABS: Creatinine* 0.5 mg/dL (0.5-1.5); Estimated Glomerular Filt Rate 98 ml/min
[2023-11-22 06:53] LABS: Anion Gap 4 mEq/L (7-15); Blood Urea Nitrogen* 10 mg/dL (7-30); Calcium* 9.1 mg/dL (8.4-10.6); Carbon Dioxide* 22 mmol/L (20-32); Glucose* 99 mg/dL (60-115)
[2023-11-22 07:00] VITALS: BP 101/66; PULSE 73; RESP 16; TEMP 37.2; O2SAT 96
[2023-11-22] MEDS: predniSONE 20 MG TABLET 60 MG PO (08:11)
[2023-11-22] MEDS: AMLODIPINE 5 MG TABLET PO ×2 (08:12→08:13)
[2023-11-22] MEDS: SODIUM CHLORIDE 1 GM TABLET PO (08:12)
[2023-11-22] MEDS: GABAPENTIN 300 MG CAPSULE PO (08:12)
[2023-11-22] MEDS: LOSARTAN POTASSIUM 50 MG TABLET 100 MG PO (08:12)
[2023-11-22] MEDS: cefTRIAXone 1 GM in 0.9 % SODIUM CHLORIDE Mini-bag 100 ML IVPB (08:13)
[2023-11-22] MEDS: MAGNESIUM OXIDE 400 MG TABLET PO (08:13)
[2023-11-22] MEDS: SODIUM CHLORIDE 0.9 % (FLUSH) 10 ML SYRINGE 5 ML IVF (08:13)
--- NOTE | 2023-11-22 09:07 | P.DS_ITS ---
DS: Providers Provider Date Seen: 11/22/23 Date of admission: 11/20/23 16:30 Primary care physician: Sarah Mendosa PA-C Admitting Clinician: Teja Bran MD Attending Physician on discharge: ERNESTO Azul, SANTANA [place] [facility] Date of Discharge: 11/22/23 DS: Diagnosis Discharge Diagnosis (1) Facial cellulitis: Status: Acute Problem details: Swelling and erythema of the face. Per family that this is worse than it was after her radiation treatment suggesting this is an acute cellulitis on top of a chronic inflammation post radiation. Failed outpatient therapy following 3 doses Augmentin, with worsening symptoms. Patient was initiated on IV ceftriaxone, transition to oral cephalexin on discharge. MRSA negative, wound culture showing no growth. Significant clinical improvement with resolution of erythema and swelling of the face. (2) Sinusitis: Status: Acute Problem details: Clinically and radiographically has some evidence for sinusitis. Was initiated on IV ceftriaxone and transition to oral cephalexin on discharge. Outpatient follow-up with PCP for resolution. (3) Fatigue: Status: Acute Problem details: Patient reports fairly severe fatigue and malaise. I am concerned this may be due to a different causes than her facial cellulitis. Specifically I am concerned that it may be a side effect of her Libtayo immune therapy. As recommended by [facility] oncology, Dr. Sanches, patient was started on oral prednisone daily, transitioned to Medrol Dosepak at time of discharge. Recommend outpatient follow-up with Oncology to re-evaluate immune therapy/side effects/fatigue and malaise (4) Nausea and vomiting: Status: Acute Problem details: Nausea vomiting and anorexia are fairly severe. Initial clinical evaluation of the abdomen is otherwise unremarkable. May be toxicity from Libtayo. Symptoms completely resolved day after admission. Patient is continued on oral prednisone at time of discharge. Outpatient follow-up with Oncology to re-evaluate immune therapy (5) Basal cell carcinoma (BCC) of skin of face: Status: Chronic Problem details: Left side of the bridge of the nose. Remote surgery with Mohs. Recent radiation (completed September 2023) and ongoing immune therapy. 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 Reports her twin brother and her daughter have the same issue. Discontinued chlorthalidone in April 2023 but did not improve chronic hyponatremia. DS: Summary Hospital Course Hospital Course: [age] year old female past medical history significant for basal cell carcinoma status post radiation therapy, current immune therapy, history of chronic hyponatremia, nasal congestion was admitted to the medical floor for further management suspected facial cellulitis and sinusitis following failed outpatient oral antibiotic therapy. Course of care and details as noted above. Patient clinically significantly improved within 24 hours of admission. IV antibiotics were transitioned to oral antibiotics at time of discharge. Patient is continued on oral prednisone to taper following discharge. Outpatient follow-up with Oncology and PCP. Remainder of chronic medical comorbidities were monitored and managed with home medications. Status at Discharge Overall status at discharge: patient is back to baseline Time Spent with Patient Time attestation: Total time spent providing and/or coordinating discharge services: Time spent: Greater than 30 minutes Exam Narrative: Exam Narrative: PHYSICAL EXAM General: Pleasant, conversant, NAD Cardiovascular: RRR Pulmonary: No dyspnea Neurological: Alert, answering questions appropriately Skin: Warm, dry. Facial erythema and swelling resolved. Const: Vital Signs, click to edit/add: Vital Signs - 24 hr 11/21/23 11:00 11/21/23 15:00 11/21/23 19:00 Temperature 99.3 F 98.8 F 98.7 F Pulse Rate [Right Pulse Oximeter] 93 89 90 Respiratory Rate 21 16 16 Blood Pressure [Le ft Arm] 124/65 119/64 128/90 H Pulse Oximetry 94 97 97 Oxygen Delivery Me thod Room Air Room Air Room Air 11/21/23 23:28 11/21/23 23:28 11/22/23 04:32 Temperature 98.1 F 97.5 F L Pulse Rate [Right Pulse Oximeter] 87 72 Respiratory Rate 16 16 16 Blood Pressure [Le ft Arm] 131/69 124/63 Pulse Oximetry 98 96 Oxygen Delivery Me thod Room Air Room Air 11/22/23 07:00 Temperature 98.9 F Pulse Rate [Right Pulse Oximeter] 73 Respiratory Rate 16 Blood Pressure [Le ft Arm] 101/66 Pulse Oximetry 96 Oxygen Delivery Me thod Room Air DS: Data Data Completed and Pending Completed studies during hospitalization: MRSA negative. Wound culture, preliminary, showing no growth Labs on day of discharge: Labs from last 24 hours 11/22/23 05:51 WBC 7.49 RBC 4.09 Hgb 11.3 L Hct 33.1 MCV 81 MCH 28 MCHC 34 RDW Coeff of [place] 13.8 Plt Count 174 Neut % (Auto) 74.8 H Lymph % (Auto) 14.7 L [place] % (Auto) 8.1 Eos % (Auto) 1.3 Baso % (Auto) 0.7 Neut # (Auto) 5.60 Lymph # (Auto) 1.10 [place] # (Auto) 0.60 Eos # (Auto) 0.10 Baso # (Auto) 0.05 Abs Immat Gran (auto) 0.03 Imm/Tot Granulo (auto) 0.4 Sodium 133 L Potassium 3.7 Chloride 107 Carbon Dioxide 22 Anion Gap 4 L BUN 10 Creatinine 0.5 Estimated Creat Clear 46.20 Estimated GFR 98 Glucose 99 Calcium 9.1 Preliminary micro results at discharge 11/20/23 16:03 Wound Culture - Preliminary Eye Left No growth. Imaging CT orbit: Attestation: I have reviewed the pertinent imaging results. Radiologist's impression: Pre and postcontrast CT of the orbits, with bone and soft tissue algorithm, c oronal and sagittal reformats. A total of 98 mL Isovue 370 contrast was administered intravenously for this exam. Comparison: Same-day CT head. CT sinus report 11/20/2021. MRI neck report 12/13/2020. Findings: There is nonspecific smooth soft tissue fullness at the left infraorbital face extending to the nasolabial fold, which appears superficial to the superficial musculoaponeurotic system. No discrete, measurable enhancing soft tissue lesion or focal fluid collection identified. The left infraorbital canal and foramen appears symmetric to the right, without aggressive bony erosion or pathologic widening. The globes appear symmetric and normal in position. The intra-ocular lens is are present in the expected anterior location. No inflammatory stranding, focal mass or suspicious enhancement identified within the intraconal or extraconal space of either orbit. The optic nerve sheath complexes and extra- ocular muscles appear symmetric and normal in course and caliber. The facial bones appear grossly intact. There is mild right and moderate left circumferential mucosal thickening throughout the maxillary antrum, extending into the anterior ethmoid air cells bilaterally, with opacified left frontal recess and layering secretions in the left frontal sinus. 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 Stable lobulated dense debris within the inferior left maxillary antrum, potentially chronic inspissated secretions versus fungal elements. Minor mucosal thickening and bubbly secretions within the right sphenoid sinus. Narrowed bilateral sphenoethmoidal recesses. Nasal septum is relatively midline. Partially opacified bilateral middle eran lamella. Slightly paradoxical left middle turbinate. Intracranial structures are detailed in a separate report. Impression: 1. Nonspecific smooth superficial soft tissue fullness at the left infraorbital face and nasolabial fold, without a discrete enhancing lesion or focal fluid collection. This could represent nonspecific preseptal periorbital cellulitis and/or posttreatment change. However, given patient history, clinical correlation and attention on follow-up advised. 2. No evidence to suggest postseptal/intraorbital pathology. No suspicious findings along the left infraorbital foramen/canal. 3. Moderate paranasal sinus mucosal inflammatory changes as detailed. CT scan - head: Attestation: I have reviewed the pertinent imaging results. Radiologist's impression: Noncontrast axial CT of the head. Coronal and sagittal reformats. Bone and soft tissue algorithms. COMPARISON: Same-day CT orbits. CT sinus report 11/20/2021 FINDINGS: Diffuse prominence of the ventricles and cortical sulci, compatible with generalized cerebral volume loss. No acute intracranial hemorrhage or abnormal extra-axial fluid collection. No midline shift or mass effect. Preserved early- white matter differentiation. Unremarkable white matter attenuation. Calcific intracranial atherosclerotic plaquing. Bony calvarium appears grossly intact. Facial structures are detailed on the separate CT orbits exam. Mastoid air cells are clear. IMPRESSION: 1. No CT evidence of acute intracranial abnormality. 2. Mild generalized cerebral volume loss. 3. Please see the separately dictated CT orbits for related findings. Discharge Plan Discharge Disposition: Home, Self-Care Date of Admission: 11/20/23 16:30 Attending Provider on Discharge: Miriam Gregg Primary Care Provider: Sarah Mendosa Condition: Improved Anticipated Discharge Date/Time: 11/22/23 09:01 Discharge Medications: New methylprednisolone [Medrol (Bean)] 4 mg tablets,dose pack See Rx Instructions .ROUTE .COMPLEX Qty: 21 0RF Rx Instructions: orally per package directions cephalexin 500 mg capsule 500 mg PO TID Qty: 15 0RF Continued amlodipine 5 mg tablet 5 mg PO DAILY doxazosin 4 mg tablet 4 mg PO HS albuterol sulfate 90 mcg/actuation HFA aerosol inhaler 1 - 2 puff inhalation Q4H PRN (Reason: wheezing) fluticasone propionate 110 mcg/actuation HFA aerosol inhaler 2 inh inhalation BID lorazepam 0.5 mg tablet 0.5 mg PO DAILY PRN (Reason: anxiety) gabapentin 300 mg capsule 300 mg PO BID montelukast 10 mg tablet 10 mg PO DIRECTED PRN Rx Instructions: take as directed before chemo infusions losartan 100 mg tablet 100 mg PO DAILY cholecalciferol (vitamin D3) 50 mcg (2,000 unit) capsule 50 mcg PO DAILY Discontinued amoxicillin-pot clavulanate 875-125 mg tablet 1 tab PO BID ofloxacin [Ocuflox] 0.3 % drops 1 drp ophthalmic (eye) Q2H Rx Instructions: to left eye - while awake Discharge Orders: Discharge Order (Routine); Ordered 11/22/23 Ordered By: Miriam Gregg Patient Education: Cellulitis (GEN), Sinusitis (GEN) Additional Instructions: Continue oral antibiotics for additional 5 days, complete the prednisone dose pack. Activity Level: No Restrictions Discharge Diet: Regular Follow Up Appointments: Sarah Mendosa PA-C [Primary Care Provider] - Carmenza Stanford MD [Referring] - 12/01/23 12:45 pm () Forms: [employer] Info Instructions
--- NOTE | 2023-11-22 11:04 | PC.NURSE ---
Discharge Note: The patient discharged home with her and son. The patient has no N/V or any abdominal discomfort. Tolerating a regular diet with no issues. The patients IV was removed. LE swelling has improved. I educated her and her family on the new oral antibiotic and steroid that she will be taking at home. I also educated her on important s/s to follow up on that would indicate the infection is getting worse. All discharge paperwork was given to the patient. Mary OROSCO BSN
[2023-11-22 11:22] LABS: Cortisol, Serum 1.3 ug/dL
== END 2023-11-22 10:47 | disposition home or self-care (01) ==
LOC: ED 11:11 → MEDSURG 16:31
PROVIDERS: Admitting Provider Family Medicine; Emergency Provider Emergency Medicine; PCP Internal Medicine; Visit Provider Family Medicine
DX: L03.211 Cellulitis of face (principal); J32.9 Chronic sinusitis, unspecified; R53.83 Other fatigue; R11.2 Nausea with vomiting, unspecified; C44.310 Basal cell carcinoma of skin of unspecified parts of face; E87.1 Hypo-osmolality and hyponatremia; E87.6 Hypokalemia
CPT/HCPCS: 36415; 70450; 70482; 80048; 80076; 82533; 83605; 83690; 83735; 84443; 85025; 86140; 87070; 87081; 99283; 99285; A9270; C9113; G0378; J0696; J1650; J2405; J7030; J7512; Q9967

== ENCOUNTER 2023-11-30 12:00 | Emergency (ER) | payer MEDICARE, OTHER, SELFPAY ==
[2023-11-30 12:10] VITALS: BP 97/84; PULSE 83; RESP 18; TEMP 36.3; O2SAT 97; BMI 31.5
--- NOTE | 2023-11-30 12:43 | ED.GENADULT ---
HPI - General Adult General Date Seen: 11/30/23 Chief complaint: Dental/Oral/Mouth Injury/Pain Stated complaint: eye and lip swelling Time Seen by Provider: 11/30/23 12:40 History of Present Illness HPI narrative: 73-year-old female with a past medical history of hypertension, obesity, colon polyps, prediabetes and basal cell carcinoma of her nose (per records through [facility] she went through several rounds of radiation for her BC see on the left side of her nose over the winter (from July to September). This is left her with chronic watery, puffy eyes, and sinus congestion. She has been receiving immune checkpoint inhibitor infusuions since then. I saw her in this ED 10 days ago on 11/19 with concern for drainage from her left eye, swelling of her left lower eyelid, left cheek, and left upper lip. She already had been on 3 days of outpatient Augmentin therapy but was not improving. In the ER she had lab workup that was reassuring. Normal white count. Normal thyroid. Normal kidney function. We did CT scan of the patient's head that showed no acute intracranial findings. CT scan did show some soft tissue swelling of the left infra orbital face. CT scan also showed mild right and moderate left circumferential mucosal thickening around the maxillary antrum, into the anterior ethmoid air cells opacified left frontal recess and layering secretion the left frontal sinus. Stable loculated dense debris within the inferior left maxillary antrum, potentially chronic secretions versus fungal elements. Also minor mucosal thickening and bubbly secretions in the right sphenoid sinus, narrow bilateral spinal ethmoid or recess. She was hospitalized for a few days and discharged on 11/21. Also she was having some vomiting and her symptoms were thought to be due to toxicity from her immune checkpoint inhibitor, Libtayo. She was started on a tapering dose of steroid for that. She was also sent home on cephalexin to treat her sinus infection. She notes that she did feel considerably better for the 1st few days after she was discharged but even before she finished the last day of her antibiotics and steroids she was beginning to feel worse again. She was noticing recurrent swelling on the left side of her face as well as upset stomach and anorexia. She is not really nauseous. No vomiting. No fever. No abdominal pain but she does does not want to eat. She has been feeling generally poorly, somewhat weak, anorexic, and has noted a new recurrent redness and swelling of her left cheek. She came back to the ER today. No diffuse headache. Vision is normal. She has some chronic clear drainage from her left eye that is pretty normal for her since her radiation. No new visual changes or eye ball redness. No cough. No shortness of breath. Related Data Home Medications Medication Instructions Recorded Confirmed albuterol sulfate 90 mcg/actuation 1 - 2 puff inhalation Q4H PRN 11/20/23 11/30/23 aerosol inhaler wheezing amlodipine 5 mg tablet 5 mg PO DAILY 11/20/23 11/30/23 cholecalciferol (vitamin D3) 50 50 mcg PO DAILY 11/20/23 11/30/23 mcg (2,000 unit) capsule doxazosin 4 mg tablet 4 mg PO HS 11/20/23 11/30/23 fluticasone propionate 110 2 inh inhalation BID 11/20/23 11/30/23 mcg/actuation HFA aerosol inhaler gabapentin 300 mg capsule 300 mg PO BID 11/20/23 11/30/23 lorazepam 0.5 mg tablet 0.5 mg PO DAILY PRN anxiety 11/20/23 11/30/23 losartan 100 mg tablet 100 mg PO DAILY 11/20/23 11/30/23 montelukast 10 mg tablet 10 mg PO DIRECTED PRN 11/20/23 11/20/23 Previous Rx's Medication Instructions Recorded cephalexin 500 mg capsule 500 mg PO TID #15 caps 11/22/23 methylprednisolone 4 mg tablets in See Rx Instructions PO .COMPLEX 11/22/23 a dose pack (Medrol (Bean)) #21 ea amoxicillin 875 mg-potassium 1 tab PO Q12H 10 days #20 tabs 11/30/23 clavulanate 125 mg tablet prednisone 20 mg tablet 60 mg (3 x 20 mg) PO DAILY #21 tabs 11/30/23 Allergies Allergy/AdvReac Type Severity Reaction Status Date / Time lisinopril Allergy Mild cough Uncoded 11/30/23 12:16 atenolol Allergy Unknown Uncoded 11/30/23 12:16 [facility] Medical History (Updated 11/30/23 @ 16:14 by Raymond Shell MD) Hypertension ?I10 - Essential (primary) hypertension (ICD-10) Hyperlipidemia ?E78.5 - Hyperlipidemia, unspecified (ICD-10) Obesity (BMI 30.0-34.9) ?E66.9 - Obesity, unspecified (ICD-10) Basal cell carcinoma (BCC) of skin of face ?C44.310 - Basal cell carcinoma of skin of unspecified parts of face (ICD-10) Hyponatremia ?E87.1 - Hypo-osmolality and hyponatremia (ICD-10) Surgical History (Updated 11/20/23 @ 16:39 by Teja Bran MD) S/P Mohs surgery for basal cell carcinoma ?Z98.890 - Other specified postprocedural states (ICD-10) ?Z85.828 - Personal history of other malignant neoplasm of skin (ICD-10) H/O sinus surgery ?Z98.890 - Other specified postprocedural states (ICD-10) Family History (Updated 11/20/23 @ 16:35 by Teja Bran MD) Brother High blood pressure Mother Breast cancer Sister Breast cancer Melanoma Social History (Updated 11/20/23 @ 16:41 by Teja Bran MD) Narrative: She lives with her near [place]. , son, [id number] are healthcare power of criminal attorney. She does not smoke. She does not drink alcohol. Code status is DNR. What is your current living situation?: I presently have a place to live Problems where you live: no known problems Problems where you live details: none known In the past 12 months, utilities in danger of being shut off: no In past 12 months, lack of transportation kept you from medical appts, meetings, work, or getting things needed for daily living: no In the past 12 mos, have been you worried that your food would run out before you had money to buy more?: never true In the past 12 mos, the food you bought just didn't last and you didn't have money to buy more?: never true Smoking Status: Never smoker How often do you have a drink containing alcohol: never AUDIT-C Alcohol total score: 0 Non-prescribed substance use: denies use Caffeine: No How often does anyone, including family, friends and others, physically hurt you: never How often does anyone, including family, friends and others, insult or talk down to you: never How often does anyone, including family, friends and others, threaten you with harm: never How often does anyone, including family, friends and others, scream or curse at you: never Exam Narrative: Exam Narrative: Constitutional: Appears well-developed and well-nourished. Alert. Conversant. Non toxic. Overall looks more well-appearing them and I saw her last week HENT: Head: Atraumatic. Exam head Nose: Fair amount of mucosal edema affecting both nostrils as and some nonpurulent rhinorrhea. No epistaxis Mouth/Throat: Oral mucosa is clear and moist. no trismus. Pharynx normal. Tonsils symmetric. No tonsillar enlargement, erythema, or exudate. Eyes: Conjunctivae normal. EOM normal. Pupils equal, round, and reactive to light. No scleral icterus. Bulbar conjunctiva normal on both sides. She does have subtle redness, less prominent than last week when I saw her affecting her lower lip and left cheek. Nose is normal. Neck: Normal range of motion. Neck supple. No tracheal deviation present. Cardiovascular: Normal rate, regular rhythm. No gallop. No friction rub. No murmur heard. Symmetric radial artery pulses Pulmonary/Chest: Effort normal. No stridor. No respiratory distress. No wheezes. No rales. No rhonchi . Abdominal: Soft. No distension. No mass. No tenderness. No rebound. No guarding. Musculoskeletal: RUE: Normal range of motion. No tenderness. No deformity LUE: Normal range of motion. No tenderness. No deformity RLE: Normal range of motion. No edema. No tenderness. No deformity LLE: Normal range of motion. No edema. No tenderness. No deformity Neurological: Alert and oriented to person, place, and time. Normal strength. CN II-VII intact. No sensory deficit. GCS eye subscore is 4. GCS verbal subscore is 5. GCS motor subscore is 6. Normal coordination Skin: Skin is warm and dry. No rash noted. No pallor. Normal capillary refill. Psychiatric: Normal mood. Normal affect. Const: Vital Signs, click to edit/add: Vital Signs - 24 hr 11/30/23 12:10 Temperature 97.4 F L Pulse Rate [Pulse Oximeter] 83 Respiratory Rate 18 Blood Pressure [Ri ght Upper Arm] 97/84 Pulse Oximetry 97 Oxygen Delivery Me thod Room Air LMA Course Vital Signs Vital signs: Initial Vital Signs Respiratory Effort Normal, Spontaneous, Non-Labored 11/30/23 12:05 Respiratory Depth Normal 11/30/23 12:05 Respiratory Pattern Normal 11/30/23 12:05 Vital Signs Temperature 97.4 F L 11/30/23 12:10 Pulse Rate 83 11/30/23 12:10 Respiratory Rate 18 11/30/23 12:10 Blood Pressure 97/84 11/30/23 12:10 Pulse Oximetry 97 11/30/23 12:10 Oxygen Delivery Method Room Air, LMA 11/30/23 12:10 Temperature 97.4 F L 11/30/23 12:10 Pulse Rate 83 11/30/23 12:10 Respiratory Rate 18 11/30/23 12:10 Blood Pressure 97/84 11/30/23 12:10 Pulse Oximetry 97 11/30/23 12:10 Oxygen Delivery Method Room Air, LMA 11/30/23 12:10 Medical Decision Making MDM Narrative Medical decision making narrative: Pleasant 73-year-old female with a history of complicated basal cell carcinoma affecting the left lateral side of her nose adjacent to the tear duct of the left eye. She is now status post chemotherapy, radiation therapy [facility] and remains on an immune checkpoint inhibitor. She had trouble a couple of weeks ago with drainage from her left eye, redness and swelling of left cheek. Initially a couple of weeks ago without her symptoms were probably due to a facial cellulitis or possibly an underlying sinus infection. She had failed a course of outpatient Augmentin prior to coming to our ER so after she was seen here she was admitted for IV antibiotics and steroids. She got better while in the hospital and was discharged. She started have recurring symptoms just prior to completing her tapering dose of the Solu-Medrol Dosepak She returns to the ER with recurrent some redness and swelling over left cheek but much less prominent than when I saw her during her previous visit. Also mild anorexia and poor appetite, generalized malaise but no nausea or upper abdominal pain this time Repeat head CT scan shows no acute finding. It does redemonstrate the presence of some fluid or sinus drainage in the left maxillary sinus. No other new signs of bony erosion or intracranial abscess. No sign of facial bone fracture Laboratory workup today is generally reassuring. White blood cell count is 8. CRP is 1.1. LFTs normal. Kidney function normal. Mild hyponatremia with sodium 129 is similar to her previous hospitalization. Not an acute change. She is alert and oriented, neurologically intact with no focal deficits, nontoxic. Discussed with oncology from [facility] and with ENT from [facility]. At this point with reasonable clinical judgment I think she is safe to discharge home from the ER. In consultation with the specialist will put her back on antibiotics for possible bacterial sinusitis. Also back on prednisone 60 mg per day until her oncology follow-up in case her symptoms are being driven by her immune checkpoint inhibitor. She will also have expedited outpatient ENT follow-up for her sinusitis and to evaluate the debris in her left maxillary sinus to look for atypical pathogens such as fungal infections. At this point she does not require hospitalization for IV antibiotics or IV antifungals. Discussed with patient and her and they are in agreement. They are eager for discharge home. Lab Data Labs: Lab Results 11/30/23 Range/Units 13:17 WBC 8.00 (4.50-11.00) K/uL RBC 4.99 (4.00-5.20) m/uL Hgb 13.8 (12.0-16.0) gm/dL Hct 41.8 (33.0-51.0) % MCV 84 (80-100) fL MCH 28 (26-34) pg MCHC 33 (32-36) gm/dL RDW Coeff of Christiano 14.6 (11.5-15.5) % Plt Count 160 (140-440) K/uL Neut % (Auto) 62.8 (42.0-72.0) % Lymph % (Auto) 19.8 L (20-44) % Boundary % (Auto) 9.5 (0.0-11.0) % Eos % (Auto) 6.4 (0.0-7.0) % Baso % (Auto) 0.5 (0.0-3.0) % Neut # (Auto) 5.03 (1.7-7.0) K/uL Lymph # (Auto) 1.60 (0.90-2.90) K/uL Boundary # (Auto) 0.80 (0.00-0.90) K/UL Eos # (Auto) 0.51 H (0.00-0.50) K/uL Baso # (Auto) 0.04 (0.00-0.30) K/uL Abs Immat Gran (auto) 0.08 (0.00-0.30) K/uL Imm/Tot Granulo (auto) 1.0 % Sodium 129 L (135-149) mmol/L Potassium 4.0 (3.6-5.1) mmol/L Chloride 97 (96-114) mmol/L Carbon Dioxide 25 (20-32) mmol/L Anion Gap 7 (7-15) mEq/L BUN 15 (7-30) mg/dL Creatinine 0.6 (0.5-1.5) mg/dL Estimated Creat Clear 46.20 Estimated GFR 94 ml/min Glucose 102 (60-115) mg/dL Calcium 8.8 (8.4-10.6) mg/dL Total Bilirubin 0.7 (0.1-1.5) mg/dL AST 25 (12-35) U/L ALT 32 (4-35) U/L Alkaline Phosphatase 67 (40-150) U/L C-Reactive Protein 1.1 H (0.5-1.0) mg/dL Total Protein 6.7 (6.0-8.3) g/dL Albumin 4.0 (3.3-5.0) g/dL Discharge Plan Discharge Clinical Impression: Anorexia, Sinusitis Patient Disposition: Home, Self-Care Condition: Stable Instructions: Sinusitis (ED) Additional Instructions: As we discussed were going to start you back on antibiotics and steroids today to try to help her symptoms get better. Be sure to follow-up with your oncologist by Thursday. You should receive a phone call from the [facility] ENT Department to arrange a follow-up appointment to check out your sinuses. Come back to the ER, or go to the ER at [facility] if you have any worsening symptoms such as increasing swelling in your face, fever, nausea or vomiting, weakness, or any other problems. Prescriptions: New amoxicillin-pot clavulanate 875-125 mg tablet 1 tab PO Q12H 10 Days Qty: 20 0RF prednisone 20 mg tablet 60 mg PO DAILY Qty: 21 0RF No Action amlodipine 5 mg tablet 5 mg PO DAILY doxazosin 4 mg tablet 4 mg PO HS albuterol sulfate 90 mcg/actuation HFA aerosol inhaler 1 - 2 puff inhalation Q4H PRN (Reason: wheezing) fluticasone propionate 110 mcg/actuation HFA aerosol inhaler 2 inh inhalation BID lorazepam 0.5 mg tablet 0.5 mg PO DAILY PRN (Reason: anxiety) gabapentin 300 mg capsule 300 mg PO BID montelukast 10 mg tablet 10 mg PO DIRECTED PRN Rx Instructions: take as directed before chemo infusions losartan 100 mg tablet 100 mg PO DAILY cholecalciferol (vitamin D3) 50 mcg (2,000 unit) capsule 50 mcg PO DAILY methylprednisolone [Medrol (Bean)] 4 mg tablets,dose pack See Rx Instructions .ROUTE .COMPLEX Qty: 21 0RF Patient Comments: completed Rx Instructions: orally per package directions cephalexin 500 mg capsule 500 mg PO TID Qty: 15 0RF Patient Comments: completed Follow Up/Referrals: Sarah Mendosa PA-C [Primary Care Provider] - Stand Alone [facility]: [facility] Info Inst[facility]
--- NOTE | 2023-11-30 13:08 | CT_ITS ---
Patient: PRISCILLA THOMPSON Facility:?[facility] Patient ID:?[id number] Site Patient ID:?[id number]. Site :?[id number] Study:?CT-Head WITHOUT-11/30/2023 1:33:03 PM Ordering Physician:?DR. TRENT Final Report: INDICATION: PT HAS HX OF LEFT CHEEK UNDER EYE BASAL CELL CARCINOMA. FACIAL SWELLING 10 DAYS AGO TREATED WITH ANTIBIOTICS. NOW HAVING SWELLING AGAIN. (Sic) COMPARISON: 11/20/2023 TECHNIQUE: CT of the head without intravenous contrast. Please note that all CT scans at this facility use dose modulation, iterative reconstruction, and/or weight-based dosing when appropriate to reduce radiation dose to as low as reasonably achievable. FINDINGS: Mild symmetrical bifrontal atrophy. Preserved maxwell-white matter differentiation. No hydrocephalus. No mass or mass effect. No intracranial hemorrhage. Intact skull base and cranial vault. Visualized orbits are without significant incidental findings. Mild left maxillary sinus mucosal thickening. The visualized paranasal sinuses and mastoid air cells are clear. IMPRESSION: No acute findings or significant interval change. Please note that all CT scans at this facility use dose modulation, iterative reconstruction, and/or weight-based dosing when appropriate to reduce radiation dose to as low as reasonably achievable. Dictated by Chuck Bey MD @ 11/30/2023 1:39:50 PM Signed by:?Chuck Bey MD @11/30/2023 1:39:50 PM (Electronic Signature)
--- NOTE | 2023-11-30 13:08 | CT_ITS ---
Patient: PRISCILLA THOMPSON Facility:?[facility] Patient ID:?[id number] Site Patient ID:?[id number]. Site :?[id number] Study:?CT-Facial WITHOUT-11/30/2023 1:34:14 PM Ordering Physician:?DR. TRENT Final Report: Indication: Basal cell carcinoma under the left eye and left cheek history with facial soft tissue swelling. Technique: Volumetric multidetector CT images of the facial bones were obtained without the administration of IV contrast. Comparison: CT orbits November 20, 2023 Findings: The partially visualized brain is normal in attenuation without evidence of midline shift or fluid collection. Chronic mucosal thickening and calcified secretions in the left maxillary sinus are again seen. Persistent minimal bubbly secretions within the right sphenoid sinus. Again seen is smooth, nonspecific superficial soft tissue swelling of the infraorbital soft tissues extending to the nasolabial fold without evidence of discrete measurable mass. There is no evidence of postseptal extension. The zygomatic arches are grossly intact. The bilateral maxillae are intact. The pterygoid plates are grossly intact. The nasal bones and anterior nasal spine are intact without displaced fracture. The partially visualized cervical spine is grossly intact without displaced fracture. Impression: Persistent mild smooth nonspecific soft tissue swelling along the left infraorbital facial soft tissues extending to the nasolabial fold without evidence of postseptal extension. Overall, this is stable appearing from comparison exam. Stable chronic sinus changes from comparison. Please note that all CT scans at this facility use dose modulation, iterative reconstruction, and/or weight-based dosing when appropriate to reduce radiation dose to as low as reasonably achievable. Dictated by Jayden Ellison MD @ 11/30/2023 1:50:19 PM Signed by:?Jayden Ellison MD @11/30/2023 1:50:19 PM (Electronic Signature)
[2023-11-30 13:25] LABS: Basophils Absolute Auto 0.04 K/uL (0.00-0.30); Basophils Percent Auto 0.5 % (0.0-3.0); Eosinophils Absolute Auto 0.51 K/uL (0.00-0.50); Eosinophils Percent Auto 6.4 % (0.0-7.0); Hematocrit 41.8 % (33.0-51.0); Hemoglobin* 13.8 gm/dL (12.0-16.0); Immature Granulocytes Abs Auto 0.08 K/uL (0.00-0.30); Lymphocytes Percent Auto 19.8 % (20-44); Mean Corpuscular HGB Conc 33 gm/dL (32-36); Mean Corpuscular Hemoglobin 28 pg (26-34); Mean Corpuscular Volume 84 fL (80-100); Monocytes Percent Auto 9.5 % (0.0-11.0); Neutrophils Absolute Auto 5.03 K/uL (1.7-7.0); Neutrophils Percent Auto 62.8 % (42.0-72.0); Platelet Count* 160 K/uL (140-440); RDW Coefficient of Variation % 14.6 % (11.5-15.5); Red Blood Count 4.99 m/uL (4.00-5.20)
[2023-11-30 13:29] LABS: Slide Review Reflex No
[2023-11-30 13:42] LABS: Chloride* 97 mmol/L (96-114); Sodium* 129 mmol/L (135-149)
[2023-11-30 13:44] LABS: Creatinine* 0.6 mg/dL (0.5-1.5); Estimated Glomerular Filt Rate 94 ml/min
[2023-11-30 13:45] LABS: Alanine Aminotransferase* 32 U/L (4-35); Alkaline Phosphatase* 67 U/L (40-150); Anion Gap 7 mEq/L (7-15); Aspartate Amino Transferase* 25 U/L (12-35); Bilirubin Total* 0.7 mg/dL (0.1-1.5); Blood Urea Nitrogen* 15 mg/dL (7-30); Carbon Dioxide* 25 mmol/L (20-32); Glucose* 102 mg/dL (60-115); Total Protein* 6.7 g/dL (6.0-8.3)
[2023-11-30 13:46] LABS: Calcium* 8.8 mg/dL (8.4-10.6)
[2023-11-30 13:48] LABS: C Reactive Protein* 1.1 mg/dL (0.5-1.0)
== END 2023-11-30 16:30 | disposition home or self-care (01) ==
PROVIDERS: Emergency Provider Emergency Medicine; PCP Internal Medicine
DX: J32.9 Chronic sinusitis, unspecified (principal); R63.0 Anorexia
CPT/HCPCS: 36415; 70450; 70486; 80053; 85025; 86140; 99282; 99283